=== PATIENT | female | born 1975 | race Caucasian/White ===

== ENCOUNTER → 2017-02-04 | Day surgery (SDC) | payer MEDICARE, OTHER ==
[~2017-02-04] VITALS: Ht 153 cm; Wt 130.4 kg
[2017-02-04 08:11] LABS: CREATININE 0.7 mg/dL (0.5-1.0); POTASSIUM 3.8 mmol/L (3.5-5.1)
== END | disposition home or self-care (01) ==
LOC: FAS 07:00
PROVIDERS: Anesthesiology
DX: M65.312 Trigger thumb, left thumb (principal); M65.311 Trigger thumb, right thumb; N28.9 Disorder of kidney and ureter, unspecified; Z88.6 Allergy status to analgesic agent; Z88.8 Allergy status to other drugs, medicaments and biological substances; Z79.899 Other long term (current) drug therapy; Z90.89 Acquired absence of other organs; Z90.49 Acquired absence of other specified parts of digestive tract; Z90.710 Acquired absence of both cervix and uterus; Z90.13 Acquired absence of bilateral breasts and nipples
CPT/HCPCS: 36415; 80048; J3010